=== PATIENT | female | born 1985 | race Two or more races ===

== ENCOUNTER 2018-08-02 17:54 | Emergency (ER) | payer SELFPAY ==
[~2018-08-02] VITALS: Ht 157.5 cm; Wt 63.5 kg
[2018-08-02] MEDS ORDERED: GABAPENTIN 300 MG CAPSULE. PO STA (18:40)
[2018-08-02] MEDS ORDERED: FLUoxetine HCL 20 MG CAPSULE PO STA (18:40)
[2018-08-02] MEDS ORDERED: ASPIRIN 325 MG TABLET PO ONE (18:45)
[2018-08-02] MEDS ORDERED: CYCLOBENZAPRINE 10 MG TABLET. PO ONE (18:45)
[2018-08-02] MEDS ORDERED: HYDROcodone/APAP 5/325MG 1 TAB TABLET PO ONE (19:15)
[2018-08-02 19:32] LABS: BASO % 0 % (0-3); EOS # 0.1 x10^3/uL (0.0-0.7); EOS % 1 % (0-3); HEMOGLOBIN 13.8 g/dL (12.0-15.5); LYMPH # 1.4 x10^3/uL (1.0-4.8); LYMPH % 21 % (24-48); MEAN CORPUSCULAR HEMOGLOBIN 30 pg (25-35); MEAN CORPUSCULAR HGB CONC 35 g/dL (31-37); MEAN CORPUSCULAR VOLUME 83 fL (79-100); MONO # 0.3 x10^3/uL (0.0-1.1); MONO % 5 % (0-9); NEUT # 4.9 x10^3uL (1.8-7.7); NEUT % 73 % (31-73); PLATELET COUNT 219 x10^3/uL (140-400); RED BLOOD COUNT 4.68 x10^6/uL (3.50-5.40); RED CELL DISTRIBUTION WIDTH 12.4 % (11.5-14.5); WHITE BLOOD COUNT 6.8 x10^3/uL (4.0-11.0)
--- NOTE | 2018-08-02 19:36 | PHYS DOC ---
Past Medical History Past Medical History: No Pertinent History, Anxiety, Depression Past Surgical History: Alcohol Use: None Drug Use: None Adult General Chief Complaint Chief Complaint: CHEST PAIN HPI HPI Patient is a 33 year old female with history of anxiety, depression, who presents today with multiple complaints. Patient is complaining of 3 out of 10 left upper extremity pain with intermittent episodes of left-sided chest pain that has been going on for 6 years. She states she attributes her pain to anxiety. She states she used to take fluoxetine. She states she's not had the medication for 6 months. She states in the last 6 months she's had increased episodes of anxiety with left upper extremity pain, tingling sensation to the left arm, and chest pain. Patient describes the left sided chest pain as sharp. She currently states she does not have any chest pain. She states she is currently going through counseling at [facility]. She states she would like to be checked out to make sure her heart is okay. Review of Systems Review of Systems Constitutional: Denies fever or chills [] Eyes: Denies change in visual acuity, redness, or eye pain [] HENT: Denies nasal congestion or sore throat [] Respiratory: Denies cough or shortness of breath [] Cardiovascular: Reports left-sided chest pain GI: Denies abdominal pain, nausea, vomiting, bloody stools or diarrhea [] : Denies dysuria or hematuria [] Musculoskeletal: Reports left upper extremity pain with tingling sensation. Denies back pain or joint pain [] Integument: Denies rash or skin lesions [] Neurologic: Denies headache, focal weakness or sensory changes [] All other systems were reviewed and found to be within normal limits, except as documented in this note. Current Medications Current Medications Current Medications Medications (Trade) Dose Ordered Sig/Tiago Start Time Stop Time Status Last Admin Dose Admin Acetaminophen/ Hydrocodone Bitart (Lortab 5/325) 1 tab 1X ONCE 08/02/18 19:15 08/02/18 19:22 DC 08/02/18 20:09 1 TAB Aspirin (Luis Aspirin) 325 mg 1X ONCE 08/02/18 18:45 08/02/18 19:22 DC 08/02/18 20:08 325 MG Cyclobenzaprine HCl (Flexeril) 10 mg 1X ONCE 08/02/18 18:45 08/02/18 19:22 DC 08/02/18 20:08 10 MG Fluoxetine HCl (PROzac) 20 mg 1X STAT 08/02/18 18:40 08/02/18 19:22 DC 08/02/18 20:08 20 MG Gabapentin (Neurontin) 300 mg 1X STAT 08/02/18 18:40 08/02/18 19:22 DC 08/02/18 20:08 300 MG Allergies Allergies Allergies Coded Allergies Type Severity Reaction Last Updated Verified No Known Drug Allergies 08/02/18 No Physical Exam Physical Exam Constitutional: Well developed, well nourished, no acute distress, non-toxic appearance. [] HENT: Normocephalic, atraumatic, bilateral external ears normal, oropharynx moist, no oral exudates, nose normal. [] Eyes: PERRLA, EOMI, conjunctiva normal, no discharge. [] Neck: Normal range of motion, no tenderness, supple, no stridor. [] Cardiovascular:Heart rate regular rhythm, no murmur [] Lungs & Thorax: Bilateral breath sounds clear to auscultation [] Abdomen: Bowel sounds normal, soft, no tenderness, no masses, no pulsatile masses. [] Skin: Warm, dry, no erythema, no rash. [] Back: No tenderness, no CVA tenderness. [] Extremities: No tenderness, no cyanosis, no clubbing, ROM intact, no edema. [] Neurologic: Alert and oriented X 3, normal motor function, normal sensory function, no focal deficits noted. [] Psychologic: Affect normal, judgement normal, mood normal. [] Current Patient Data Vital Signs Vital Signs Date Time Temp Pulse Resp B/P (MAP) Pulse Ox O2 Delivery O2 Flow Rate FiO2 08/02/18 21:00 72 16 121/78 (92) 99 Room Air 08/02/18 18:08 98.3 98.3 Lab Values Laboratory Tests Test 08/02/18 19:15 08/02/18 19:25 08/02/18 19:28 08/02/18 19:30 White Blood Count 6.8 x10^3/uL (4.0-11.0) Red Blood Count 4.68 x10^6/uL (3.50-5.40) Hemoglobin 13.8 g/dL (12.0-15.5) Hematocrit 39.0 % (36.0-47.0) Mean Corpuscular Volume 83 fL (79-100) Mean Corpuscular Hemoglobin 30 pg (25-35) Mean Corpuscular Hemoglobin Concent 35 g/dL (31-37) Red Cell Distribution Width 12.4 % (11.5-14.5) Platelet Count 219 x10^3/uL (140-400) Neutrophils (%) (Auto) 73 % (31-73) Lymphocytes (%) (Auto) 21 % (24-48) L Monocytes (%) (Auto) 5 % (0-9) Eosinophils (%) (Auto) 1 % (0-3) Basophils (%) (Auto) 0 % (0-3) Neutrophils # (Auto) 4.9 x10^3uL (1.8-7.7) Lymphocytes # (Auto) 1.4 x10^3/uL (1.0-4.8) Monocytes # (Auto) 0.3 x10^3/uL (0.0-1.1) Eosinophils # (Auto) 0.1 x10^3/uL (0.0-0.7) Basophils # (Auto) 0.0 x10^3/uL (0.0-0.2) Sodium Level 143 mmol/L (136-145) Potassium Level 3.6 mmol/L (3.5-5.1) Chloride Level 105 mmol/L (98-107) Carbon Dioxide Level 29 mmol/L (21-32) Anion Gap 9 (6-14) 19 mmol/L (6-14) H Blood Urea Nitrogen 9 mg/dL (7-20) Creatinine 0.6 mg/dL (0.6-1.0) Estimated GFR (Cockcroft-Gault) 116.6 Glucose Level 111 mg/dL (70-99) H 113 mg/dL (70-99) H Calcium Level 9.3 mg/dL (8.5-10.1) Magnesium Level 2.0 mg/dL (1.8-2.4) Troponin I Quantitative < 0.017 ng/mL (0.000-0.055) VB-Cwx-[id number]-Type Natriuretic Peptide 57 pg/mL (0-124) Thyroid Stimulating Hormone (TSH) 1.468 uIU/mL (0.358-3.74) POC Troponin I 0.00 ng/ml (<0.08) POC Hemoglobin 12.9 g/dL (12-15) POC Hematocrit 38 % (36-40) POC Sodium 143 mmol/L (135-145) POC Potassium 3.5 mmol/L (3.5-5.0) POC Chloride 103 mmol/L (98-110) POC Total CO2 26 mmol/L (23-32) POC Blood Urea Nitrogen 7 mg/dL (8-26) L POC Creatinine 0.6 mg/dL (0.5-1.4) POC Ionized Calcium (Emeka) 1.22 mmol/L (1.13-1.32) Urine Collection Type Unknown Urine Color Yellow Urine Clarity Clear Urine pH 6.5 Urine Specific [place] 1.010 Urine Protein Negative mg/dL (NEG-TRACE) Urine Glucose (UA) Negative mg/dL (NEG) Urine Ketones (Stick) Negative mg/dL (NEG) Urine Blood Moderate (NEG) Urine Nitrite Negative (NEG) Urine Bilirubin Negative (NEG) Urine Urobilinogen Dipstick 0.2 mg/dL (0.2 mg/dL) Urine Leukocyte Esterase Large (NEG) Urine RBC 6-10 /HPF (0-2) Urine WBC 20-40 /HPF (0-4) Urine Squamous Epithelial Cells Many /LPF Urine Bacteria Mod /HPF (0-FEW) Urine Mucus Slight /LPF Urine Opiates Screen Neg (NEG) Urine Methadone Screen Neg (NEG) Urine Barbiturates Neg (NEG) Urine Phencyclidine Screen Neg (NEG) Urine Amphetamine/Methamphetamine Neg (NEG) Urine Benzodiazepines Screen Neg (NEG) Urine Cocaine Screen Neg (NEG) Urine Cannabinoids Screen Neg (NEG) Urine Ethyl Alcohol Neg (NEG) Laboratory Tests 08/02/18 19:15 Laboratory Tests 08/02/18 19:15 08/02/18 19:28 EKG EKG 19:[address] Starks sinus rythm heart rate 79 no STEMI[] Radiology/Procedures Radiology/Procedures [] Course & Med Decision Making Course & Med Decision Making Pertinent Labs and Imaging studies reviewed. (See chart for details) This is a 33-year-old female patient with history of anxiety, depression, presenting today complaining of left-sided chest pain, left upper extremity pain or symptoms ongoing for 6 years. Patient is supposed to be on fluoxetine, has not been taking it for the last 6 months. Cardiac workup is negative, urine noted for UTI. Given prescription for cephalexin. Distended fluoxetine. Instructed to continue following up with [facility]. Staff Physician Addendum: I was working in the ER during the course of this patient's visit. I was available for consultation as needed, but I was not directly involved in the care of this patient. Dragon Disclaimer Dragon Disclaimer This electronic medical record was generated, in whole or in part, using a voice recognition dictation system. Departure Departure Impression: Primary Impression: Chest pain Additional Impressions: Anxiety UTI (urinary tract infection) Disposition: HOME, SELF-CARE Condition: STABLE Referrals: NO PCP (PCP) follow up with [facility] next week Patient Instructions: Anxiety and Panic Attacks, Chest Pain (Nonspecific), Easy -to-Read, Urinary Tract Infection Additional Instructions: You were evaluated in the emergency room. We sent you home with medications, take them as prescribed. Continue following up with [facility]. Scripts Naproxen (NAPROXEN) 375 Mg Tablet 1 TAB PO BID, #20 TAB 0 Refills Prov: WALLY MCPHERSON APRN 08/02/18 Cyclobenzaprine Hcl (CYCLOBENZAPRINE HCL) 10 Mg Tablet 1 TAB PO TID, #30 TAB Prov: WALLY MCPHERSON APRN 08/02/18 Gabapentin (GABAPENTIN) 300 Mg Capsule 300 MG PO TID PRN for PAIN, #30 CAP Prov: WALLY MCPHERSON APRN 08/02/18 Cephalexin (CEPHALEXIN) 500 Mg Tablet 1 TAB PO BID, #14 TAB Prov: WALLY MCPHERSON APRN 08/02/18 Fluoxetine Hcl (FLUOXETINE HCL) 20 Mg Capsule 1 CAP PO DAILY, #20 CAP 0 Refills Prov: WALLY MCPHERSON APRN 08/02/18 Problem Qualifiers Primary Impression: Chest pain Chest pain type: unspecified Qualified Codes: R07.9 - Chest pain, unspecified Additional Impressions: UTI (urinary tract infection) Urinary tract infection type: site unspecified Hematuria presence: without hematuria Qualified Codes: N39.0 - Urinary tract infection, site not specified WALLY MCPHERSON APRN Aug 02, 2018 19:36 YARIEL POSADAS MD Aug 02, 2018 23:05
[2018-08-02 19:41] LABS: CALCIUM 9.3 mg/dL (8.5-10.1); CREATININE 0.6 mg/dL (0.6-1.0); GFR 116.6; POTASSIUM 3.6 mmol/L (3.5-5.1)
[2018-08-02 19:49] LABS: CREATININE ISTAT 0.6 mg/dL (0.5-1.4); HEMOGLOBIN ISTAT 12.9 g/dL (12-15); ION CA ISTAT 1.22 mmol/L (1.13-1.32); POTASSIUM ISTAT 3.5 mmol/L (3.5-5.0)
--- NOTE | 2018-08-02 19:50 | EKG ---
[facility] [address] [place] [address] Test Date: 2018-08-02 Test Time: 19:02:54 Pat Name: JUWAN ALMEIDA Department: Room: Gender: F Patient Access Director: : 1985 Requested By: WALLY MCPHERSON Order Number: [id number] Reading MD: Measurements Intervals Graham Rate: 77 P: 42 NV: 100 QRS: 34 QRSD: 86 T: 33 QT: 366 QTc: 416 Interpretive Statements SINUS RHYTHM QRS(T) CONTOUR ABNORMALITY CONSIDER ANTEROLATERAL MYOCARDIAL DAMAGE CONSIDER INFERIOR MYOCARDIAL DAMAGE POSSIBLY ABNORMAL ECG RI6.01 No previous ECG available for comparison
[2018-08-02 19:56] LABS: BILIRUBIN,URINE NEGATIVE (NEG); CLARITY,URINE CLEAR; COLOR,URINE YELLOW; NITRITE,URINE NEGATIVE (NEG); PH,URINE 6.5; PROTEIN,URINE NEGATIVE (NEG-TRACE); UROBILINOGEN,URINE 0.2 mg/dL (0.2 mg/dL)
[2018-08-02 20:06] LABS: BACTERIA,URINE MOD /HPF (0-FEW); BARBITURATES NEG (NEG); BENZODIAZEPINES NEG (NEG); CANNABINOIDS NEG (NEG); COCAINE NEG (NEG); METHADONE NEG (NEG); OPIATES NEG (NEG); PHENCYCLIDINE NEG (NEG); SQUAMOUS EPITHELIAL CELL,UR MANY /LPF; WBC,URINE 20-40 /HPF (0-4)
[2018-08-02 20:07] LABS: AMPHETAMINE/METHAMPHETAMINE NEG (NEG)
[2018-08-02 21:00] VITALS: BP 121/78
[2018-08-02] MEDS ORDERED: GABA300C18 PO (21:05)
[2018-08-02] MEDS ORDERED: CEPH500T PO (21:05)
[2018-08-02] MEDS ORDERED: FLUO20CA8 PO (21:05)
[2018-08-02] MEDS ORDERED: NAPR-695 PO (21:05)
[2018-08-02] MEDS ORDERED: CYCL10TA2 PO (21:05)
--- NOTE | 2018-08-02 22:31 | RAD ---
PORTABLE CHEST 1V Clinical Indication: ER PATIENT. ATRAUMATIC LEFT SIDE CHEST PAIN RADIATING TO LEFT SHOULDER. Comparison: None. Findings: The cardiomediastinal silhouette is normal. Lungs are clear. There is no pneumothorax. No pleural effusion is appreciated. No acute bone abnormality. IMPRESSION: No acute cardiopulmonary process. Electronically signed by: Jacobo Turk MD (08/02/2018 10:26 PM) [facility]
== END 2018-08-02 21:17 | disposition home or self-care (01) ==
LOC: ER 17:54
DX: R07.89 Other chest pain (principal); F41.9 Anxiety disorder, unspecified; N39.0 Urinary tract infection, site not specified; F32.9 Major depressive disorder, single episode, unspecified
CPT/HCPCS: 36415; 71045; 80047; 80048; 80307; 81001; 83735; 83880; 84443; 84484; 85025; 93005; 99284-25

== ENCOUNTER 2021-04-25 04:30 | Emergency (ER) | payer SELFPAY ==
[~2021-04-25 04:30] MED LIST: CEPH500T PO; CYCL10TA2 PO; FLUO20CA20 PO; GABA300C18 PO; NAPR-695 PO
== END 2021-04-25 06:26 | disposition left against medical advice (07) ==
LOC: ER 04:30
DX: R10.9 Unspecified abdominal pain (principal); R11.10 Vomiting, unspecified; Z53.21 Procedure and treatment not carried out due to patient leaving prior to being seen by health care provider